=== PATIENT | female | born 1980 | race Caucasian/White ===

== ENCOUNTER 2024-07-12 09:27 | Emergency (ER) | payer OTHER, SELFPAY ==
--- NOTE | 2024-07-12 09:55 | ED.GENMED ---
History of Present Illness
General
Chief Complaint: Crisis Evaluation
Source: other (Presenting guards)
Exam Limitations: other (Patient uncooperative)
Time Seen by Provider: 07/12/24 09:33
Nursing documentation reviewed up to this point in time: agreed with
History of Present Illness
History of Present Illness:
Patient is a 43-year-old female from [facility] brought for possible suicide attempt. Patient was found in her [facility] cell with her dirty laundry netting bag over her head/neck. There was no report of pt hanging.
They thought patient's skin was bluish when they found her but she was responding.
As per nurse at correction facility she was uncooperative with giving history.
Pt presents here awake alert no acute distress not cooperative. Patient when asked what happened respond' I do not know.' When I asked however if she is suicidal she report' every day.' She tells me she' prays I will go to.' She admits to
suicide attempt in the past but will not tell me details. She is refusing vital signs. She is in no acute distress normal color no shortness of breath .
Review of Systems
Review of Systems
Allergies reviewed?: Yes
All Other Systems: ROS reviewed and negative except as documented in HPI and ROS
Constitutional: Reports no symptoms
Respiratory: Reports no symptoms
Cardiac: Reports no symptoms
ABD/GI: Reports no symptoms
: Reports no symptoms
Musculoskeletal: Reports no symptoms
Skin: Reports no symptoms
Neurological: Reports no symptoms
Psychiatric: Reports no symptoms
Phy Exam
General Physical Exam
General Presentation: no apparent distress
General age: appears stated age
General Skin: warm and dry
General Habitus: normal
General Mental: alert
General Hydration: appears well hydrated
ENT Exam
ENT Exam: neck supple and other (Tongue secretions well)
Eye Exam
Eye Exam: PERRL and EOMI
Eye Exam General: PERRL: bilateral and EOM intact: bilateral
Pupil Exam: Bilateral: round and reactive
Cardiovascular Exam
Cardiovascular Exam: regular rate/rhythm, no murmur, normal peripheral pulses and other (Anterior neck and upper chest without any evidence of trauma no redness abrasions no ecchymosis no crepitus lungs clear in no acute distress )
Pulmonary Exam
Pulmonary Exam: lungs clear and no respiratory distress
Neurological Exam
Neurological Exam: alert and oriented x3
Musculoskeletal Exam
Musculoskeletal Exam: full ROM
Skin Exam
Skin Exam: normal color and warm/dry
Psychiatric Exam
Psychiatric Exam: normal mood/affect
Course
Orders/Labs/Results
Orders:
Orders
07/12/24 10:13
1:1 Observation - Suicide/ Violent Behavior As Directed
07/12/24 10:18
Crisis Consult Urgent
Reason for Consult: suidica ideation
07/12/24 10:19
PSYCHIATRY CONSULT Urgent
Consulting Provider: Amrit Pride
Was physician already notified: Yes
Reason for consult: suicidal attempt
07/12/24 13:07
Vital Signs- Treatment ONCE
Frequency: Once
Vital Signs
Initial and Last Documented VS:
Initial Vital Signs
Temp Pulse Resp BP Pulse Ox
98.1 F 76 20 168/78 99
07/12/24 13:10 07/12/24 13:10 07/12/24 13:10 07/12/24 13:10 07/12/24 13:10
Last Documented Vital Signs
Temp Pulse Resp BP Pulse Ox
98.1 F 76 20 168/78 99
07/12/24 13:10 07/12/24 13:10 07/12/24 13:10 07/12/24 13:10 07/12/24 13:10
MDM/Problems Addressed
MDM/Problems Addressed:
Patient was a 43-year-old female who was [facility] and [facility] with a laundry net over her head and wrapped around her neck. It was reported that patient's skin color was bluish as per the electrical superintendent however she was
responding. She is not cooperative with staff and was sent here to the ER.
On arrival to the ER patient has no physical complaints and on physical exam there is no evidence of trauma including no redness to her neck no complaints shortness of breath no crepitus lungs are clear no ecchymosis. She is normal color she is
mentating normally.
She does not want a give history here in the ER but when asked, she tells me that she is always suicidal.
she was seen by psychiatry Dr. Pride. Patient may be discharged back to nursing home under close watch. I did speak with the nurse at the [facility] and she is able to be closely watched in a monitored setting for suicide
precautions.
*Pulse Oximetry
Patient hypoxic: no
*Critical Care Note
Total Time (30-74mins, 75-104mins- exclusive of procedures): Not Applicable
ED Attending Note
-
Portions of this chart may have been created with voice recognition software.� Occasional wrong word or��sound alike� substitutions may have occurred due to the inherent limitations of voice recognition software.
Discharge Plan
Departure
Patient Disposition: Home (Routine Discharge)
Date of Disposition: 07/12/24
Time of Disposition: 13:16
Patient with high blood pressure during this ER visit?: Yes
Condition: Fair
Covid-19: Not Applicable
Discharge Problem:
Suicide attempt
Referrals:
PRIVATE,PHYSICIAN [Family Provider] -
Activity Restrictions/Additional Instructions:
Patient must be on suicide precautions. Patient was evaluated by psychiatry here in the ER. Patient had no physical complaints and on exam had no evidence of trauma
Interventions
Interventions:
*Risk Screen - Suicide Last Done: 07/12/24 09:57
*General Assessment Last Done: 07/12/24 09:57
*Neglect/Abuse Screening Last Done: 07/12/24 09:57
ED- Fall Risk Assessment Last Done: 07/12/24 09:57
*ED COVID-19 Vaccine History Last Done: 07/12/24 09:57
ED-Psychological Assessment Last Done: 07/12/24 09:57
Discharge Date and Time
Print Language: SYRIAC
[2024-07-12 09:57] VITALS: BMI 20.8
--- NOTE | 2024-07-12 11:41 | W.PN.UPDATE ---
Update Note
Progress Note Update
Psychiatric Evaluation dictated.
Patient still expresses suicidal thoughts ; claims she does not remember what happened but also states that if given a chance she would try to kill self by any means possible. She is not a good historian but is depressed as her don who id now 17 was
taken fron her as she was unable to care for him and eventually put in foster care system.
She admits she was hospitalized in psychiatric facility in [place] in the past. Currently admits to complete hopelessness and has no will to go on. She is not agitated or psychotic.
At this point she meeds to be either on a mental blake unit or in an observation room she she can be monitored. Additionally she needs psychiatric care for F/U.
It is my understanding that she cannot go to inpatient psychiatric unit as she is incarcerated bur the nursing home has an observation unit where she can be intensively monitored.
Discussed with Crisis.
[2024-07-12 13:10] VITALS: BP 168/78
== END 2024-07-12 15:15 | disposition home or self-care (01) ==
LOC: EMR 09:27
PROVIDERS: CONSULT PHYSICIAN Psychiatry & Neurology Psychiatry; EMERGENCY PHYSICIAN Emergency Medicine
DX: T14.91XA Suicide attempt, initial encounter (principal); X83.8XXA Intentional self-harm by other specified means, initial encounter; Y92.143 Cell of prison as the place of occurrence of the external cause; F32.A Depression, unspecified; Z91.51 Personal history of suicidal behavior; Z87.820 Personal history of traumatic brain injury
CPT/HCPCS: 99284